=== PATIENT | female | born 1955 | race Caucasian/White ===

== ENCOUNTER 2019-07-21 00:25 | Day surgery (SDC) | payer OTHER, SELFPAY ==
[2019-07-16 12:14] VITALS: BMI 25.8
[2019-07-21] MEDS: LACTATED RINGERS 1,000 ML 150 ML IV CONT (08:55)
[2019-07-21 08:56] VITALS: BP 119/70; PULSE 69; RESP 17; TEMP 37.1; O2SAT 99; BMI 24.9
--- NOTE | 2019-07-21 10:21 | WPDHPUPDATE1 ---
History and Physical Update Update Date/Time: 07/21/19 10:21 History and Physical has been reviewed, including an updated exam of the patient. There are NO changes in the patient's condition. Risks, benefits, and alternatives have been discussed and questions answered. Patient agrees to proceed with procedure.
[2019-07-21 10:40] VITALS: BP 134/88; PULSE 84; RESP 21; O2SAT 95
[2019-07-21 10:50] VITALS: BP 134/66; PULSE 71; RESP 20; O2SAT 100
[2019-07-21 11:00] VITALS: BP 148/86; PULSE 56; RESP 20; O2SAT 100
== END 2019-07-21 11:29 | disposition home or self-care (01) ==
PROVIDERS: PCP Family Medicine; Visit Provider Internal Medicine Gastroenterology
PROC: 0DJ08ZZ Inspection of Upper Intestinal Tract, Via Natural or Artificial Opening Endoscopic (ICD-10-PCS; CPT 43235; principal; 2019-07-21 09:30)
DX: K44.9 Diaphragmatic hernia without obstruction or gangrene (principal); K29.50 Unspecified chronic gastritis without bleeding; K20.9 Esophagitis, unspecified; M81.0 Age-related osteoporosis without current pathological fracture
CPT/HCPCS: 43239; 88305; J2704; J7120

== ENCOUNTER 2020-07-27 07:43 | Outpatient (CLI) | payer OTHER, SELFPAY ==
--- NOTE | ~2020-07-27 | MM_ITS ---
EXAMINATION: MM screening samuel BI w brooklynn HISTORY: Screening mammogram TECHNIQUE: Craniocaudal and mediolateral oblique 3-D tomosynthesis images were obtained and synthetic 2-D images were generated. CAD analysis was submitted and interpreted. COMPARISON: 06/03/2019, 01/22/2018, 01/15/2017 bilateral digital screening mammogram examinations BREAST PARENCHYMAL COMPOSITION: There are scattered areas of fibroglandular density. FINDINGS: Occasional benign calcifications. There is no evidence of suspicious mass, calcification, o r architectural distortion to suggest malignancy in either breast. There has been no suspicious inter sjuatha change. IMPRESSION: 1. No mammographic evidence of malignancy. 2. Recommend routine screening mammography in one year. BI-RADS Category 2: Benign finding(s). Reviewed, dictated and finalized at location A. ET OPERATOR
--- NOTE | ~2020-07-27 | DEXA_ITS ---
Bone Density Report Name: Indu Lam Age: 65 Sex: Female Ethnicity: White Date of : 1955 Indication: postmenopausal; parental hip fracture; prior fracture; hysterectomy; Referring Provider: BEAU SHEPHERD Study: Bone densitometry was performed. Exam Date: July 27, 2020 Accession number: [id number] Bone Density: Region BMD T-score Z-score Classification AP Spine (L1, L2) 0.907 -0.7 1.0 Normal Femoral Neck (Left) 0.666 -1.6 -0.2 Osteopenia Total Hip (Left) 0.891 -0.4 0.8 Normal Total Hip Bilateral Avg 0.857 -0.7 0.5 Normal Femoral Neck (Right) 0.627 -2.0 -0.5 Osteopenia Total Hip (Right) 0.822 -1.0 0.2 Normal World Health Organization criteria for BMD impression classify patients as: Normal (T-score at or above -1.0), Osteopenia (T-score between -1.0 and -2.5), or Osteoporosis (T-score at or below -2.5). 10-year Fracture Risk(1): Major Osteoporotic Fracture 31% Hip Fracture 2.5% Reported Risk Factors: [place] (), Neck BMD=0.627, BMI=25.9, previous fracture, parental fracture (1) FRAX(R) Version 3.08. Fracture probability calculated for an untreated patient. Fracture probability may be lower if the patient has received treatment. Previous Exams: Region Exam Age BMD T-score BMD Change BMD Change Date g/cm2 vs Baseline vs Previous AP Spine(L1, L2) 07/27/2020 65 0.907 -0.7 -0.039(-4.1%)# 0.026(3.0%)* 01/15/2017 61 0.881 -0.9 -0.065(-6.9%)# -0.009(-1.0%) 05/03/2014 59 0.890 -0.8 -0.056(-5.9%)# 0.031(3.6%)# 01/25/2010 54 0.859 -1.1 -0.087(-9.2%)* -0.087(-9.2%)* 08/11/2007 52 0.946 -0.3 Total Hip(Left) 07/27/2020 65 0.891 -0.4 -0.014(-1.6%)# 0.009(1.0%) 01/15/2017 61 0.882 -0.5 -0.023(-2.6%)# -0.017(-1.9%) 05/03/2014 59 0.899 -0.4 -0.006(-0.7%)# 0.032(3.7%)# 01/25/2010 54 0.867 -0.6 -0.038(-4.2%)* -0.038(-4.2%)* 08/11/2007 52 0.905 -0.3 Total Hip(Right) 07/27/2020 65 0.822 -1.0 -0.084(-9.2%)# -0.014(-1.7%) 01/15/2017 61 0.836 -0.9 -0.070(-7.7%)# -0.021(-2.5%) 05/03/2014 59 0.857 -0.7 -0.048(-5.3%)# -0.010(-1.1%)# 01/25/2010 54 0.867 -0.6 -0.039(-4.3%)* -0.039(-4.3%)* 08/11/2007 52 0.906 -0.3 *Denotes significance at 95% confidence level, LSC for AP Spine = 0.022 g/cm2, LSC for Total Hip = 0.027 g/cm2 Clinical Information Provided by Patient: Has had a low trauma fracture Parent has had a hip fracture Has used the following medications: Calcium Has the following medical con
== END 2020-07-27 07:44 | disposition home or self-care (01) ==
LOC: ANHIMG 07:45
PROVIDERS: PCP Family Medicine; Visit Provider Obstetrics & Gynecology
DX: Z12.31 Encounter for screening mammogram for malignant neoplasm of breast (principal); Z78.0 Asymptomatic menopausal state; M85.852 Other specified disorders of bone density and structure, left thigh; M85.851 Other specified disorders of bone density and structure, right thigh
CPT/HCPCS: 77063; 77067; 77080

== ENCOUNTER 2020-12-12 10:07 | Outpatient (CLI) | payer OTHER, SELFPAY ==
--- NOTE | ~2020-12-12 | XR_ITS ---
EXAMINATION: XR thoracic spine 3V DATE: 12/12/2020 10:32 INDICATION: Dorsalgia unspecified TECHNIQUE: AP, lateral and lateral swimmer's views of the thoracic spine were obtained. COMPARISON: 06/29/2008 FINDINGS: There is no fracture, dislocation, or subluxation. The vertebral body heights and alignment are normal. There is mild loss of intervertebral disc space height in the midthoracic spine. Small d egenerative osteophytes project from the anterior endplates of multiple vertebral bodies. IMPRESSION: 1. Mild thoracic spondylosis without acute findings or significant interval change. Reviewed, dictated and finalized at location A. IMPRESSION: 1. Mild thoracic spondylosis without acute findings or significant interval uri mercye.
--- NOTE | ~2020-12-12 | XR_ITS ---
EXAMINATION: XR lumbar spine 2-3V DATE: 12/12/2020 10:32 INDICATION: Low back pain TECHNIQUE: Anteroposterior and lateral views of the lumbar spine, and cone-down lateral view of the l umbosacral junction were obtained. COMPARISON: 02/04/2017 FINDINGS: There is levoscoliosis of the lumbar spine. There are 5 mm of stable retrolisthesis of L2 o n L3. Severe loss of intervertebral disc space height is present at L2-3. There is unchanged moderate asymmetric loss of intervertebral disc space height at L3-4 and L4-5. The vertebral body heights are maintained. There is no fracture. A moderate volume of colonic stool is present. IMPRESSION: 1. Levoscoliosis and mild to moderate lumbar spondylosis without acute findings or significant interv al change. Reviewed, dictated and finalized at location A. IMPRESSION: 1. Levoscoliosis and mild to moderate lumbar spondylosis without acute findings or significant interval change.
== END 2020-12-12 10:08 | disposition home or self-care (01) ==
PROVIDERS: PCP Family Medicine; Visit Provider Family Medicine
DX: M47.894 Other spondylosis, thoracic region (principal); M47.896 Other spondylosis, lumbar region
CPT/HCPCS: 72072; 72100

== ENCOUNTER 2021-06-09 01:34 | Day surgery (SDC) | payer MEDICARE, OTHER, SELFPAY ==
[2021-05-30 12:44] VITALS: BMI 25.3
--- NOTE | 2021-06-08 13:46 | WPDANESEPPF ---
Anes - Initial Pre Proc Eval Procedure: Operation Date: 06/09/21 09:30 Proposed Procedures p Screening Colonoscopy - Kenneth Aguilar MD <Luiz Mcginnis, DO - Last Filed: 06/09/21 09:38> Date/Time: 06/08/21 13:46 <Luiz Mcginnis DO - Last Filed: 06/09/21 09:38> Surgeon: Kenneth Aguilar MD <Luiz Mcginnis, DO - Last Filed: 06/09/21 09:38> Pre Op Diagnosis: neoplasm screening <Luiz Mcginnis DO - Last Filed: 06/09/21 09:38> Patient Data Age: 66 Gender: F Height: 1.63 m Weight: 67 kg <Luiz Mcginnis DO - Last Filed: 06/09/21 09:38> Allergies Allergy/AdvReac Type Severity Reaction Status Date / Time diclofenac Allergy Unknown Unknown Verified 06/09/21 08:45 Latex, Natural Rubber Allergy Unknown RASH Verified 06/09/21 08:45 prednisone Allergy Unknown Unknown Verified 06/09/21 08:45 <Luiz Mcginnis DO - Last Filed: 06/09/21 09:38> Home Medications Medication Instructions Recorded Confirmed Type ascorbic acid (vitamin C) 1,000 mg 1 gm PO DAILY 06/24/19 06/09/21 History tablet multivitamin 1 tablet PO DAILY 06/24/19 06/09/21 History naproxen sodium 220 mg tablet 220 mg PO DAILY 06/24/19 06/09/21 History Vit D 3 1 cap PO DAILY 07/16/19 06/09/21 History hydroxyzine HCl 25 mg tablet 25 mg PO TID PRN #90 tablet 08/25/20 06/09/21 Rx lorazepam 0.5 mg tablet 0.5 mg PO QHS PRN #90 tablet 11/09/20 06/09/21 Rx pantoprazole 20 mg tablet,delayed 20 mg PO BID #180 tablet 03/14/21 06/09/21 Rx release fluoxetine 20 mg capsule 20 mg PO DAILY #90 cap 05/08/21 06/09/21 Rx terbinafine HCl 250 mg PO DAILY 05/30/21 06/09/21 History <Luiz Mcginnis DO - Last Filed: 06/09/21 09:38> Patient hx anesthesia problems: none <Jamison SienaCleo JUANY Phelps - Last Filed: 06/09/21 09:15> Family hx anesthesia problems: none <Jamison Bridget Phelps CRNA - Last Filed: 06/09/21 09:15> Results Review: All pre-operative results and documents have been reviewed as part of the pre-operative evaluation. <Luiz Mcginnis DO - Last Filed: 06/09/21 09:38> [facility] Past Medical History Medical History: Medical History Abdominal discomfort Anxiety Broken arm Chronic back pain Chronic cough Dyslipidemia Dyspepsia Epigastric pain GERD without esophagitis History of vaginal delivery x 2 Osteoporosis Primary insomnia Seasonal allergies <Luiz Mcginnis DO - Last Filed: 06/09/21 09:38> Surgical History Surgical History: Surgical History History of ankle surgery (~2015) History of eye surgery (~2014) History of hysterectomy, supracervical (~2010) <Luiz Mcginnis DO - Last Filed: 06/09/21 09:38> Family History Family History: Family History Sibling Family history of malignant neoplasm of breast in first degree relative, Onset Age: 40 Family history of lung cancer, Onset Age: 40 Family history of malignant neoplasm of uterus, Onset Age: 40 Mother Hypertension Other Diabetes mellitus Family history of coronary artery disease Family history of malignant neoplasm <Luiz Mcginnis DO - Last Filed: 06/09/21 09:38> Social History Social History: Social History Smoking status: Never smoker Second hand tobacco smoke exposure: No Alcohol intake: current Drinks per week: 2 Alcohol use details: Social Substance use: never Substance use type: does not use Living arrangements: with family Additional living arrangements comments: Gender identity (if verbalized by the patient): Female Sexual Orientation (if Verbalized by the Patient): Straight or Heterosexual Spiritual care concerns: No <Luiz Mcginnis, - Last Filed: 06/09/
[2021-06-09 08:40] VITALS: BP 109/68; PULSE 88; RESP 16; TEMP 36.7; O2SAT 99; BMI 26.2
[2021-06-09] MEDS: LACTATED RINGERS 1,000 ML 150 ML IV CONT (08:58)
--- NOTE | 2021-06-09 09:04 | WPDGICN ---
Assessment and Plan Assessment and plan (1) Encounter for screening colonoscopy: Code(s): Z12.11 - Encounter for screening for malignant neoplasm of colon Status: Acute Assessment and Plan: Patient presents for screening colonoscopy. Appears to be at average risk for colon polyps. (2) GERD without esophagitis: Code(s): K21.9 - Gastro-esophageal reflux disease without esophagitis Status: Acute Assessment and Plan: Patient with a history of GE reflux disease. He notices occasional heartburn in the morning. Suggest she either try pantoprazole twice a day before breakfast and dinner or to take higher dose before dinner in the evening. GI Consult Note Consult date/time: 06/09/21 09:04 HPI: Indu Lam is a 66 year old female Presents for screening colonoscopy. Patient's current weight appetite and bowel movements are normal. She denies abdominal pain. Her bowel habits are normal she has had no bleeding. Family history is noncontributory. Review of Systems Review of Systems: All systems reviewed & are unremarkable except as noted in HPI and below PMFSH Past Medical History Medical History Abdominal discomfort Anxiety Broken arm Chronic back pain Chronic cough Dyslipidemia Dyspepsia Epigastric pain GERD without esophagitis History of vaginal delivery x 2 Osteoporosis Primary insomnia Seasonal allergies Surgical History Surgical History History of ankle surgery (~2015) History of eye surgery (~2014) History of hysterectomy, supracervical (~2010) Family History Family History Sibling Family history of malignant neoplasm of breast in first degree relative, Onset Age: 40 Family history of lung cancer, Onset Age: 40 Family history of malignant neoplasm of uterus, Onset Age: 40 Mother Hypertension Other Diabetes mellitus Family history of coronary artery disease Family history of malignant neoplasm Social History Social History Smoking status: Never smoker Second hand tobacco smoke exposure: No Alcohol intake: current Drinks per week: 2 Alcohol use details: Social Substance use: never Substance use type: does not use Living arrangements: with family Additional living arrangements comments: Gender identity (if verbalized by the patient): Female Sexual Orientation (if Verbalized by the Patient): Straight or Heterosexual Spiritual care concerns: No Meds Home Medications and Allergies Home Medications Medication Instructions Recorded Confirmed Type ascorbic acid (vitamin C) 1,000 mg 1 gm PO DAILY 06/24/19 06/09/21 History tablet multivitamin 1 tablet PO DAILY 06/24/19 06/09/21 History naproxen sodium 220 mg tablet 220 mg PO DAILY 06/24/19 06/09/21 History Vit D 3 1 cap PO DAILY 07/16/19 06/09/21 History hydroxyzine HCl 25 mg tablet 25 mg PO TID PRN #90 tablet 08/25/20 06/09/21 Rx lorazepam 0.5 mg tablet 0.5 mg PO QHS PRN #90 tablet 11/09/20 06/09/21 Rx pantoprazole 20 mg tablet,delayed 20 mg PO BID #180 tablet 03/14/21 06/09/21 Rx release fluoxetine 20 mg capsule 20 mg PO DAILY #90 cap 05/08/21 06/09/21 Rx terbinafine HCl 250 mg PO DAILY 05/30/21 06/09/21 History Allergies Allergy/AdvReac Type Severity Reaction Status Date / Time diclofenac Allergy Unknown Unknown Verified 06/09/21 08:45 Latex, Natural Rubber Allergy Unknown RASH Verified 06/09/21 08:45 prednisone Allergy Unknown Unknown Verified 06/09/21 08:45 Vital Signs Vital Signs - 24 hr 06/09/21 08:40 Temperature 98.0 F Pulse Rate 88 Respiratory Rate 16 Blood Pressure 109/68 Pulse Oximetry 99 Exam Narrative: Physical exam reveals patient to be alert. Vital signs stable. HEENT exam is unremarkable.
[2021-06-09 09:59] VITALS: BP 92/55; PULSE 81; RESP 16; O2SAT 98
[2021-06-09 10:09] VITALS: BP 98/59; PULSE 82; RESP 18; O2SAT 97
[2021-06-09 10:19] VITALS: BP 107/57; PULSE 80; RESP 16; O2SAT 97
== END 2021-06-09 10:24 | disposition home or self-care (01) ==
PROVIDERS: PCP Family Medicine; Visit Provider Internal Medicine Gastroenterology
PROC: 0DJD8ZZ Inspection of Lower Intestinal Tract, Via Natural or Artificial Opening Endoscopic (ICD-10-PCS; CPT 45378; principal; 2021-06-09 09:30)
DX: Z12.11 Encounter for screening for malignant neoplasm of colon (principal); K64.8 Other hemorrhoids; E78.5 Hyperlipidemia, unspecified; K21.9 Gastro-esophageal reflux disease without esophagitis; F41.9 Anxiety disorder, unspecified; M81.0 Age-related osteoporosis without current pathological fracture
CPT/HCPCS: G0121; J2001; J2704; J7120

== ENCOUNTER 2021-08-16 10:27 | Outpatient (CLI) | payer MEDICARE, OTHER, SELFPAY ==
--- NOTE | ~2021-08-16 | MM_ITS ---
EXAMINATION: MM screening [facility] BI w brooklynn HISTORY: Screening mammogram, family history of breast cancer in her sister. TECHNIQUE: Craniocaudal and mediolateral oblique 3-D tomosynthesis images were obtained and synthetic 2-D images were generated. CAD analysis was submitted and interpreted. COMPARISON: 07/27/2020, 06/03/2019, 01/22/2018 BREAST PARENCHYMAL COMPOSITION: There are scattered areas of fibroglandular density. FINDINGS: Scattered benign-appearing calcifications are present. There is no suspicious mass, calcifi cation, or architectural distortion to suggest malignancy in either breast. There has been no suspici ous interval change. IMPRESSION: 1. No mammographic evidence of malignancy. 2. Recommend routine screening mammography in one year. BI-RADS Category 2: Benign finding(s). Reviewed, dictated and finalized at location A.
== END 2021-08-16 10:28 | disposition home or self-care (01) ==
LOC: ANHIMG 10:30
PROVIDERS: PCP Family Medicine; Visit Provider Obstetrics & Gynecology
DX: Z12.31 Encounter for screening mammogram for malignant neoplasm of breast (principal)
CPT/HCPCS: 77063; 77067

== ENCOUNTER 2022-10-02 09:44 | Outpatient (CLI) | payer MEDICARE, OTHER, SELFPAY ==
--- NOTE | ~2022-10-02 | XR_ITS ---
Lumbosacral Spine: AP and lateral views Clinical History: Pain COMPARISON: 12/12/2020 Findings: There is 26 degree dextroscoliosis of the lumbar spine, with mild right lateral subluxation of L2 over L3 on AP view. There is severe degenerative disc narrowing at L2-L3. There is advanced fa cet arthropathy from L3 through S1.. No fracture identified. The remaining intervertebral disc spaces are preserved. The sacroiliac joints are normally outlined. Impression: Dextroscoliosis and moderate degenerative spondylitic changes, as detailed above. Reviewed, dictated and finalized at location . Impression: Dextroscoliosis and moderate degenerative spondylitic changes, as detailed dayanna navarro
--- NOTE | ~2022-10-02 | XR_ITS ---
Thoracic spine: Clinical Indication: Back pain AP and lateral views were performed. No fracture is seen. There is normal alignment of the vertebrae. The intervertebral disc spaces appe ar normal. Paravertebral soft tissues appear normal. Impression: No significant abnormalities noted. Reviewed, dictated and finalized at [facility]. Impression: No significant abnormalities noted.
== END 2022-10-02 09:45 | disposition home or self-care (01) ==
PROVIDERS: PCP Family Medicine; Visit Provider Physician Assistant
DX: M47.897 Other spondylosis, lumbosacral region (principal)
CPT/HCPCS: 72072; 72100

== ENCOUNTER 2022-10-25 14:40 | Outpatient (CLI) | payer MEDICARE, OTHER, SELFPAY ==
--- NOTE | ~2022-10-25 | MR_ITS ---
EXAMINATION: MR lumbar spine wo con DATE: 10/25/2022 15:17 INDICATION: Lumbar spondylosis without myelopathy or radiculopathy. Low back pain. TECHNIQUE: Magnetic resonance imaging (MRI) of the lumbar spine was performed without intravenous con trast. Sequences included sagittal T2-weighted FSE, sagittal T2-weighted FS FSE, sagittal T1-weighted FSE, and axial T2-weighted FSE. COMPARISON: Lumbar spine MRI 07/08/2008 FINDINGS: There is 15 degrees dextroscoliosis of thoracolumbar spine. There is 4 mm retrolisthesis of L2 on L3 and 3 mm anterolisthesis of L4 on L5 and L5 on S1. There is mild chronic height loss of L2 vertebral body. There is moderately decreased disc height at L1-L2, severely decreased disc height at L2-L3 and L3-L4, moderately decreased disc height at L4-L5, and mildly decreased disc height at L5-S 1. The distal spinal cord signal intensity is normal. The conus medullaris is at T12. The following d isc levels are specifically discussed: L1-L2: The disc is bulging. There is severe bilateral facet joint osteoarthritis. There is mild bilat eral neural foraminal stenosis. There is mild central canal stenosis. L2-L3: The disc is bulging. There is moderate right and mild left facet joint osteoarthritis. There i s moderate bilateral neural foraminal stenosis. There is mild central canal stenosis. L3-L4: The disc is bulging and has an annular fissure. There is moderate right and mild left facet hans int osteoarthritis. There is moderate right and mild left neural foraminal stenosis. There is mild ce ntral canal stenosis. L4-L5: The disc is bulging and has an annular fissure. There is severe bilateral facet joint osteoart hritis. There is mild bilateral neural foraminal stenosis. There is mild central canal stenosis. L5-S1: The disc is bulging. There is severe bilateral facet joint osteoarthritis. There is mild bilat eral neural foraminal stenosis. There is no central canal stenosis. IMPRESSION: 1. Severe lumbar spondylosis, worsened from 07/08/2008. 2. Thoracolumbar dextroscoliosis. Reviewed, dictated and finalized at location A.
== END 2022-10-25 14:41 | disposition home or self-care (01) ==
PROVIDERS: PCP Family Medicine; Visit Provider Physician Assistant
DX: M47.816 Spondylosis without myelopathy or radiculopathy, lumbar region (principal)
CPT/HCPCS: 72148

== ENCOUNTER 2023-02-05 09:12 | Outpatient (CLI) | payer MEDICARE, OTHER, SELFPAY ==
--- NOTE | ~2023-02-05 | MM_ITS ---
EXAMINATION: MM screening samuel BI w brooklynn HISTORY: Screening TECHNIQUE: Craniocaudal and mediolateral oblique 3-D tomosynthesis images were obtained and synthetic 2-D images were generated. CAD analysis was submitted and interpreted. COMPARISON: Comparison to multiple prior studies sequentially, with oldest reviewed study dated 10/03. BREAST PARENCHYMAL COMPOSITION: The breasts are heterogeneously dense, which may obscure small masses FINDINGS: There is no evidence of suspicious mass, calcification, or architectural distortion to sugg est malignancy in either breast. There has been no suspicious interval change. IMPRESSION: 1. No mammographic evidence of malignancy. 2. Recommend routine screening mammography in one year. BI-RADS Category 1: Negative Reviewed, dictated and finalized at location A.
== END 2023-02-05 09:13 | disposition home or self-care (01) ==
PROVIDERS: PCP Family Medicine; Visit Provider Family Medicine
DX: Z12.31 Encounter for screening mammogram for malignant neoplasm of breast (principal)
CPT/HCPCS: 77063; 77067

== ENCOUNTER 2024-02-26 09:42 | Outpatient (CLI) | payer MEDICARE, OTHER, SELFPAY ==
--- NOTE | ~2024-02-26 | MM_ITS ---
EXAMINATION: MM screening samuel BI w brooklynn HISTORY: Screening TECHNIQUE: Craniocaudal and mediolateral oblique 3-D tomosynthesis images were obtained and synthetic 2-D images were generated. CAD analysis was submitted and interpreted. COMPARISON: Comparison to multiple prior studies sequentially, with oldest reviewed study dated 01/15. BREAST PARENCHYMAL COMPOSITION: Dense: The breasts are heterogeneously dense, which may obscure small masses FINDINGS: There is no evidence of suspicious mass, calcification, or architectural distortion to sugg est malignancy in either breast. There has been no suspicious interval change. IMPRESSION: 1. No mammographic evidence of malignancy. 2. Recommend routine screening mammography in one year. BI-RADS Category 1: Negative Reviewed, dictated and finalized at location B.
== END 2024-02-26 09:43 | disposition home or self-care (01) ==
LOC: ANHIMG 09:44
PROVIDERS: PCP Family Medicine; Visit Provider Family Medicine
DX: Z12.31 Encounter for screening mammogram for malignant neoplasm of breast (principal)
CPT/HCPCS: 77063; 77067

== ENCOUNTER 2025-02-26 09:01 | Outpatient (CLI) | payer MEDICARE, OTHER, SELFPAY ==
--- OUTSIDE RECORDS SUMMARY | 2009-09-27 19:00 | XMS_ITS | Continuity of Care Document ---
Author Organization [facility] Address [address] [place] [address] Phone Care Team Providers Care Ross Lift Operator Name Role Phone Administrative, Provider Unavailable Unavail able Procedures Procedure Date Medical Record Copy Medical Record Copy Per Page Affidavit MRI of thoracic spine MRI of lumbar spine Advance Directives Directive Yes / No Effective Date File Name No Information Encounters Encounter Description Practice Location Reason(s) For Visit Diagnoses Date Provider Providers Copied on Encounter [facility], [address], [place], [place], [id number], [place] tel:[phone] [facility] No Information 2 0 Administrative Provider. [address], [address], [place], [place], [id number], [place]. tel:[phone] Referring Provider: Patric Grey, [address] [place] [address], [address]. tel:[phone] [facility], [address], [place], [id number], [place] tel:[phone] [facility] No Information [address] [facility]. [address], [address], [place], [place], [id number], [place]. tel:[phone] Referring Provider: Patric Grey, [address] [place] [address] [address] [place], [address]. tel:[phone] [facility], [address], [place], [place], [id number], [place] tel:[phone] [facility] No Information [address] [facility]. [address], [address], [place], [place], [id number], [place]. tel:[phone] Referring Provider: Patric Grey, [address], [place], [address]. tel:[phone] Family History Family Member Type Diagnosis Age At Onset No Information Payers Payer name Insurance type Covered alliance party ID Authoriza tion(s) No Information Social History Type Description Quantity Date Captured Comments Sex Female Smoking Status No Information Chief Complaint And Reason For Visit No Information Reason For Referral Reason For Referral No Information History Of Present Illness Encounter Date Complaint History Of Prese nt Illness No Information Functional Status Date Functional Assessmen t No Information Instructions Date Instruction Additional Infor mation No Information Assessments Type Assessment Date No Information Patient Care Teams Name Effective Dates (start - stop) Status Members No Information
--- NOTE | ~2025-02-26 | MM_ITS ---
EXAMINATION: MM screening samuel BI w [facility] HISTORY: Screening TECHNIQUE: Craniocaudal and mediolateral oblique 3-D tomosynthesis images were obtained and synthetic 2-D images were generated. CAD analysis was submitted and interpreted. COMPARISON: Comparison to multiple prior studies sequentially, with oldest reviewed study dated , 06/03/2019 BREAST PARENCHYMAL COMPOSITION: The breasts are heterogeneously dense, which may obscure small masses. FINDINGS: There is no evidence of suspicious mass, calcification, or architectural distortion to suggest malignancy in either breast. IMPRESSION: 1. No mammographic evidence of malignancy. 2. Recommend routine screening mammography in one year. BI-RADS Category 1: Negative Reviewed, dictated and finalized at location B.
--- OUTSIDE RECORDS SUMMARY | 2025-02-26 09:20 | XMS_ITS | Clinical Summary ---
Author Organization [facility] Address [address] [place] [address] Care Team Providers Care Sample Washer Name Role Phone Unavailable Primary Care Provider Unavailabl e Source Comments [facility],non-owned Affiliates and Associated Physician Practices is amultiple site organization consisting of ambulatory clinics and hospital sitesin [place], [place], [place] and [place]. This disclosure is being madepursuant to the Care Everywhere program and may not contain all information available regarding this patient. Last updated 18.[facility] Allergies Active Allergy Reactions Criticality Noted Date Comments Latex Rash Medium 07/05/2018 Prednisone Unknown 11/26/2022 Medications * Be aware that medications may not be up to date on this document. Alwaysverify current medications with the patient. FLUOXETINE HCL PO Ac tive zolpidem (Ambien) 10 MG tablet Take 1 (one) tablet by mouth nightly as needed for Insomnia Active pantoprazole EC (Protonix) 20 MG tablet Take 1 (one) tablet by mouth 2 times daily Active hydrOXYzine HCl (Atarax) 25 MG tablet Take 1 (one) tablet by mouth 3 times daily as needed for Itching Active traMADol (Ultram) 50 MG tablet Take 1 (one) tablet by mouth every 6 hours as needed for Pain Active cyclobenzaprine (Flexeril) 10 MG tablet Take 1 (one) tablet by mouth 3 times daily as needed for Muscle Spasms Active Naproxen Sodium (ALEVE PO) Active Cobalamin Combinations (NEURIVA PLUS PO) Ac tive Plant Sterols and Stanols (CHOLESTOFF PO) Acti ve Calcium Carbonate-Vit D-Min (CALCIUM 1200 PO) Active vitamin D3 (CVS D3) 125 MCG (5000 UT) capsule Take 1 (one) capsule by mouth once daily Active Cholecalciferol (Vitamin D-3) 125 MCG (5000 UT) Active Multiple Vitamins-Minerals (WOMENS MULTIVITAMIN PO) Act reji Cetirizine HCl (ZYRTEC ALLERGY PO) Active vitamin C (Ascorbic Acid) 1000 MG tablet Take 1 (one) tablet by mouth once daily Active Bacillus Coagulans-Inulin (Align Prebiotic-Probiot ic) 5-1.25 MG-GM CHEW Active Family History Medical History Relation Name Comments Cancer Brother High Cholesterol Brother Renal Disease Brother Heart Failure Father Renal Disease Father CAD (Coronary Artery Disease) Mother High Cholesterol Mother Cancer Sister Heart Failure Sister High Cholesterol Sister Relation Name Status Comments Brother Alive Father Mother Sister Alive Social History Tobacco Use Types Packs/Day Years Used Date Smoking Tobacco: Never Smokeless Tobacco: Never Tobacco Cessation:Counseling Given: Not Answered Comments No Sex and Gender Information Value Date Recorded Sex Assigned at Not on file Legal Sex Female 11:43 AM CLINICAL NURSING MANAGER Gender Identity Not on file Sexual Orientation Not on file Last Filed Vital Signs Vital Sign Reading Time Taken Comments Blood Pressure 118/78 07/05/2018 4:00 PM CLINICAL NURSING MANAGER Pulse 99 07/05/2018 4:00 PM CLINICAL NURSING MANAGER Temperature 36.9 C (98.5 F) 07/05/2018 4:00 PM CLINICAL NURSING MANAGER Respiratory Rate 16 07/05/2018 4:00 PM CLINICAL NURSING MANAGER Oxygen Saturation 98% 07/05/2018 4:00 PM CLINICAL NURSING MANAGER Inhaled Oxygen Concentration - - Weight 61.2 kg (135 lb) 12/12/2022 10:54 AM CDT Height 160 cm (5' 3) 12/12/2022 10:54 AM CDT Body Mass Index 23.91 12/12/2022 10:54 AM CDT Plan of Treatment Health Maintenance Due Date Last Done Comments BONE DENSITY TESTING 1955 COLOGUARD (AGES 45-75) - COL ON CA SCREENING 1955 COLON MONITORING 1955 COLONOSCOPY - COLON CA SCREENING 1955 CT COLONOGRAPHY - COLON CA SCREENING 1955 Colorectal Cancer Screening 1955 FIT - COLON CA SCREENING 1955 FLEX SIG - COLON CA SCREENING 1955 LIPID TESTING 1955 MAMMOGRAM 1955 MEDICARE AWV 12 MONTHS 1955 HEPATITIS C SCREENING 01/30/1974 DTAP/TDAP/TD VACCINES (1 - Tdap) 02/03/1975 PNEUMOCOCCAL VACCINE 50+ (1 of 1 - PCV) 02/03/2006 ZOSTER VACCINE (1 of 2) 02/03/2006 DEPRESSION SCREENING 05/20/2024 COVID-19 VACCINE (1 - 2023-2 5 season) 2025 INFLUENZA VACCINE (#1) 2025 Respiratory Syncytial Virus (RSV) Vaccine Pt: or over 60 yrs (1 - 1-dose 75+ series) 02/03/2031 HEPATITIS B VACCINE Aged Out No longe r eligible based on patient's age to complete this topic HIB VACCINE Aged Out No longer eligi ble based on patient's age to complete this topic HPV VACCINE Aged Out No longer eligi ble based on patient's age to complete this topic MENINGOCOCCAL (Group B) VACC INE SHARED DECISION-MAKING Aged Out No longer eligibl e based on patient's age to complete this topic MENINGOCOCCAL GROUPS A/C/Y/W VACCINE Aged Out No longer eligible b ased on patient's age to complete [place] [address] MEDICARE [facility]
== END 2025-02-26 09:02 | disposition home or self-care (01) ==
LOC: ANHFOHIMG 09:03
PROVIDERS: PCP Family Medicine; Visit Provider Family Medicine
DX: Z12.31 Encounter for screening mammogram for malignant neoplasm of breast (principal)
CPT/HCPCS: 77063; 77067

== ENCOUNTER 2025-03-19 08:30 | Outpatient (CLI) | payer MEDICARE, OTHER, SELFPAY ==
--- NOTE | ~2025-03-19 | DEXA_ITS ---
Bone Density Report Name: QUOC THOMASON Age: 70 Sex: Female Ethnicity: White Date of : 1955 Indication: postmenopausal; screening for osteoporosis; parental hip fracture; height loss; prior fracture; hysterectomy; Referring Provider: DARI TELLES Study: Bone densitometry was performed. Exam Date: March 19, 2025 Accession number: [id number] Bone Density: Region BMD T-score Z-score Classification AP Spine(L1-L4) 0.882 -1.5 0.6 Osteopenia Femoral Neck (Left) 0.667 -1.6 0.1 Osteopenia Total Hip (Left) 0.848 -0.8 0.7 Normal Femoral Neck (Right) 0.611 -2.1 -0.4 Osteopenia Total Hip (Right) 0.769 -1.4 0.0 Osteopenia Total Hip Mean 0.808 -1.1 0.4 Osteopenia World Health Organization criteria for BMD impression classify patients as: Normal (T-score at or above -1.0), Osteopenia (T-score between -1.0 and -2.5), or Osteoporosis (T-score at or below -2.5). 10-year Fracture Risk(1): Major Osteoporotic Fracture 30% Hip Fracture 7.0% Reported Risk Factors: [place] (), Neck BMD=0.611, BMI=23.1, previous fracture, parental fracture (1) FRAX(R) Version 3.08. Fracture probability calculated for an untreated patient. Fracture probability may be lower if the patient has received treatment. Previous Exams: -- Region Exam Age BMD T-score BMD Change BMD Change Date g/cm2 vs Baseline vs Previous -- Total Hip(Left) 03/19/2025 70 0.848 -0.8 -4.9%* -4.9%* 07/27/2020 65 0.891 -0.4 Total Hip(Right) 03/19/2025 70 0.769 -1.4 -6.5%* -6.5%* 07/27/2020 65 0.822 -1.0 -- *Denotes significance at 95% confidence level, LSC for Total Hip = 0.027 g/cm2 Clinical Information Provided by Patient: Has had a low trauma fracture Parent has had a hip fracture Has used the following medications: Vitamin D, Calcium Has the following medical conditions: Hysterectomy Patient maximum height was 64 Menopause Age: 55 Drinks caffeinated beverages Onset of menses at age 14 Number of children 2 Impression: The patient has low bone mass, based on the Right Femoral Neck T-score. The patient has an estimated ten-year risk of hip fracture of 7% and an estimated ten-year risk of major fracture of 30%, based on the WHO FRAX algorithm. The patient has risk factors, including: parental hip fracture, previous fracture. The BMD for the Total Hip(Left) decreased, changing by -4.9% since the last DXA exam. The BMD for the Total Hip(Right) decreased, changing by -6.5% since the last DXA exam. Discussion: BONE DENSITY IS LOW AT ONE OR MORE SKELETAL SITES. THE PATIENT'S BMD AND CLINICAL RISK FACTORS CONTRIBUTE TO THIS PATIENT'S HIGH RISK OF FRACTURE. This patient's lowest T-score is low at one or more skeletal sites. It meets the World Health Organization's (WHO) criteria for ?low bone mass? (T-score between -1.0 and -2.5). The patient's 10-year risk of hip fracture and 10 year risk of a major osteoporotic fracture as calculated by FRAX exceeds the threshold where pharmacological therapy is recommended by the National Osteoporosis Foundation (NOF). However, all treatment decisions require clinical judgment and consideration of individual patient factors, including patient preferences, comorbidities, previous drug use, risk factors not captured in the FRAX model (e.g., frailty, falls, vitamin D deficiency, increased bone turnover, interval significant decline in bone density) and possible under or overestimation of fracture risk by FRAX. The patient should follow a healthful lifestyle (good nutrition with adequate calcium and vitamin D, and appropriate weight-bearing exercise). Follow-Up: Consider a repeat BMD and Vertebral Fracture Assessment (VFA) exam in 2 years or sooner if medically necessary, to reassess this patient's status. Reported by: HAYLEY on 03/19/2025 8:52:00 AM. Reviewed, dictated and finalized at location A.
== END 2025-03-19 08:31 | disposition home or self-care (01) ==
LOC: MICIMG 08:32
PROVIDERS: PCP Family Medicine; Visit Provider Family Medicine
DX: M85.89 Other specified disorders of bone density and structure, multiple sites (principal); Z78.0 Asymptomatic menopausal state
CPT/HCPCS: 77080